=== PATIENT | male | born 1985 | race Two or more races ===

== ENCOUNTER 2016-06-23 13:04 | Emergency (ER) | payer BC ==
[2016-06-23 13:15] VITALS: BP 141/89; PULSE 107; RESP 18; TEMP 98.7
--- NOTE | 2016-06-23 13:49 | ED ---
General Adult HPI - General Chief complaint: Extremity Injury, Lower Stated complaint: ankle injury/knee pain Time Seen by Provider: 06/23/16 13:29 Source: patient, RN notes reviewed Mode of arrival: wheelchair Limitations: no limitations - History of Present Illness Initial comments: This is a 30-year-old male presents with right ankle pain and right knee pain since 3:00 yesterday. Patient states he was walking and tripped on a dog toy rolling his right ankle. Patient did not fall on the knee but states this been slightly sore with flexion and extension since he rolled his ankle. Patient states he fell onto his backside but denies any back pain, change in bowel or bladder function, lost sensation in the saddle area, radicular pain, numbness/ weakness or tingling. Patient is able to ambulate but has been using a single crutch for support. Patient has noticed some swelling to the right ankle. Patient denies any recent fever, chills, shortness breath, chest pain, abdominal pain, nausea/vomiting/diarrhea, back pain, hematuria, headache, or visual changes, or any other complaints. - Related Data Allergies Allergy/AdvReac Type Severity Reaction Status Date / Time No Known Allergies Allergy Verified 06/23/16 13:11 Review of Systems ROS Statement: Those systems with pertinent positive or pertinent negative responses have been documented in the HPI. ROS Other: All systems not noted in ROS Statement are negative. Past Medical History Past Medical History: No Reported History History of Any Multi-Drug Resistant Organisms: None Reported Past Surgical History: No Surgical Hx Reported Past Psychological History: No Psychological Hx Reported Smoking Status: Former smoker Past Alcohol Use History: Occasional Past Drug Use History: None Reported General Exam - General Exam Comments Initial Comments: General: The patient is awake and alert, in no distress, and does not appear acutely ill. Neck: The neck is supple, there is no tenderness or JVD. Cardiovascular: There is a regular rate and rhythm. No murmur, rub or gallop is appreciated. Respiratory: Lungs are clear to auscultation, respirations are non-labored, breath sounds are equal. No wheezes, stridor, rales, or rhonchi. Musculoskeletal: There is tenderness to palpation over the medial and lateral malleoli of the right ankle. There is no tenderness of the right knee. There is some pain in the anterior right knee with flexion and extension of the right knee. There is no effusion. There is no tenderness to palpation of the right foot. Full range of motion, strength 5/5 and Sensation intact. Posterior tibial and dorsalis pedis pulses are 2+ bilaterally. Capillary refill is normal at less than 2 seconds. Neurological: A&O x 3. CN II-XII intact, There are no obvious motor or sensory deficits. Coordination appears grossly intact. Speech is normal. Skin: Skin is warm and dry and no rashes or lesions are noted. Psychiatric: Normal mood and affect. Limitations: no limitations Course Vital Signs 06/23/16 13:11 Temperature 98.7 F Pulse Rate 107 H Respiratory 18 Rate Blood Pressure 141/89 O2 Sat by Pulse 100 Oximetry Medical Decision Making - Medical Decision Making Is a 30-year-old male presents to the right ankle and right foot pain 1 day. On physical exam There is tenderness to palpation over the medial and lateral malleoli of the right ankle. There is no tenderness of the right knee. There is no effusion. There is some pain in the anterior right knee with flexion and extension of the right knee. There is no tenderness to palpation of the right foot. Full range of motion, strength 5/5 and Sensation intact. Posterior tibial and dorsalis pedis pulses are 2+ bilaterally. Capillary refill is normal at less than 2 seconds. X-ray the right ankle and right knee were done and reviewed showing: X-ray right knee: No acute fracture or dislocation. Reported by Dr. Bhatt X-ray right ankle: There is no acute fracture or dislocation in the right ankle. Reported by Dr. Chaparro. I discussed ankle and knee sprains. Discussed rest, ice, elevate and use Darian wrap and Aircast for support while up and walking. I discussed crutches as needed for ambulating. Discussed weightbearing as tolerated and range of motion exercises. I discussed occult fracture. I discussed return parameters. Discussed that patient should follow up with PCP in one to 2 days or return to the [facility] for any worsening symptoms or for any further concerns. Patient was receptive to this plan and patient will be discharged home. Disposition Clinical Impression: Ankle sprain, Knee sprain Disposition: HOME SELF-CARE Condition: Good Instructions: Ankle Sprain (ED), Knee Sprain (ED) Additional Instructions: Please rest, ice, elevate and use air cast and Darian wrap for support while up and walking. Please use crutches if needed for ambulation. Please perform range of motion exercises to the right ankle and knee periodically throughout the day. If symptoms do not improve in the next 7 days repeat x-rays may be needed to rule out occult fracture. Please use [id number] Tylenol or Motrin as needed for pain. Please use medication as discussed. Please follow- up with family doctor in the next 2 days of symptoms have not improved. Please return to emergency room if the symptoms increase or worsen or for any other concerns. Referrals: None,Stated [Primary Care Provider] - 1-2 days Tiana Bailey MD [REFERRING] - 1-2 days Supriya Ring MD [STAFF PHYSICIAN] - 1-2 days Handy Sibley MD [Medical Doctor] - 1-2 days Time of Disposition: 14:07
--- NOTE | 2016-06-23 13:58 | XR ---
EXAMINATION TYPE: XR ankle complete RT DATE OF EXAM: 06/23/2016 1:42 PM CLINICAL HISTORY: Right ankle pain after twisting injury yesterday. TECHNIQUE: Frontal, lateral and oblique images of the right ankle are obtained. COMPARISON: None. FINDINGS: There is no acute fracture/dislocation evident in the right ankle. The ankle mortise appe ars within normal limits. Moderate soft tissue swelling over the lateral malleolus is noted. IMPRESSION: There is no acute fracture or dislocation in the right ankle.
--- NOTE | 2016-06-23 14:02 | XR ---
EXAMINATION TYPE: XR knee complete RT DATE OF EXAM: 06/23/2016 1:42 PM COMPARISON: NONE HISTORY: Pain FINDINGS: Joint spaces are preserved. Osseous structures are intact. No acute fracture seen. IMPRESSION: 1. No acute fracture or dislocation.
== END 2016-06-23 14:18 | disposition home or self-care (01) ==
LOC: EC 13:04
DX: S93.401A Sprain of unspecified ligament of right ankle, initial encounter (principal); S83.91XA Sprain of unspecified site of right knee, initial encounter; Z87.891 Personal history of nicotine dependence; W22.8XXA Striking against or struck by other objects, initial encounter; Y93.01 Activity, walking, marching and hiking
CPT/HCPCS: 99283 ×2; 73562; 73610; L4350